=== PATIENT | male | born 1955 | race Caucasian/White ===

== ENCOUNTER → 2018-04-29 | Outpatient (CLI) | payer OTHER ==
[~2018-04-29] MED LIST: ANDROGEL; ASPIR 8181 MG PO; ASPIRIN; ATORVASTATIN CA20 MG PO; AUGMENTIN 875875 MG PO; CELEXA; CIPROFLOXACIN500 M1 PO; CLOPIDOGREL; CRESTOR; DOXYCYCLINE 10100 M1 PO; FLEXERIL PO; HUMALOG KW200 UNIT/1 SUBQ; IMDUR; INSULIN PEN NE1 EAC2; LEVAQUIN 750 M750 MG PO; LEVEMIR SUBQ; METFORMIN; MUCINEX1200 MG PO; NEURONTIN 300300 M1 PO; NEXIUM 24HR20 MG; NITROGLYCERIN0.4 MG SUBLING; NOHOMEMEDICATIONS; NORCO 5-325 TA1 EACH PO; OXYCODONE; OXYCODONE HCL 55 MG PO; OXYCONTIN20 M1 PO; PERCOCET 10-321 EAC1 PO; PLAVIX 75 MG TA75 M1 PO; PREDNISONE 10 M10 MG PO; PROPRANOLOL; PROTONIX40 M1 PO; TIZANIDINE; TOPROL XL25 MG PO; TRICOR; VENTOLIN HFA 1818 GM INH; VICODIN 5-5001 EACH PO; VISTARIL; WELLBUTRIN; XARELTO; XARELTO20 MG PO; ZOFRAN ODT4 MG SUBLING; [UNRECOGNIZED DRUG - OTHER]
== END ==
LOC: M.LAB 04-25 14:00 → M.CT 04-25 15:00 → M.LAB 04-25 15:00 → M.CT 10:01 → M.LAB 10:30
PROVIDERS: General Practice
DX: K76.0 Fatty (change of) liver, not elsewhere classified (principal); J44.9 Chronic obstructive pulmonary disease, unspecified; J98.4 Other disorders of lung; J18.9 Pneumonia, unspecified organism; Z85.118 Personal history of other malignant neoplasm of bronchus and lung

== ENCOUNTER → 2018-07-17 | Outpatient (CLI) | payer OTHER | LOC: M.ULTRA 07-10 13:00 | DX: I65.23 Occlusion and stenosis of bilateral carotid arteries (principal); R09.89 Other specified symptoms and signs involving the circulatory and respiratory systems; I10 Essential (primary) hypertension; E11.21 Type 2 diabetes mellitus with diabetic nephropathy ==

== ENCOUNTER 2019-01-07 08:40 | Inpatient (IN) | payer OTHER ==
[~2019-01-07] VITALS: Ht 180.3 cm; Wt 93.9 kg
[2019-01-07 08:52] VITALS: BP 152/87
[2019-01-07 09:25] LABS: ABSOLUTE BASOPHILS 0.1 thou/uL (0.0-0.2); ABSOLUTE EOSINOPHILS 0.1 thou/uL (0.0-0.7); ABSOLUTE LYMPHOCYTES 2.1 thou/uL (0.8-5.3); ABSOLUTE MONOCYTES 0.5 thou/uL (0.0-1.2); ABSOLUTE NEUTROPHILS 9.6 thou/uL (1.6-8.1); BASOPHILS 0.9 %; EOSINOPHILS 0.7 %; HEMATOCRIT 46.4 % (42.0-52.0); LYMPHOCYTES 16.9 %; MCH 29.3 pg (26.0-34.0); MCHC 34.6 g/dL (28.0-37.0); MCV 84.9 fL (80.0-100.0); NUCLEATED RBCS 0 /100WBC; PLATELET COUNT* 184 thou/uL (150-400); POLYS 77.5 %; RBC 5.47 mil/uL (4.50-6.00); RDW-CV 13.8 % (10.5-14.5); WBC 12.3 thou/uL (4.0-11.0)
[2019-01-07 09:35] LABS: ALBUMIN 3.9 g/dL (3.4-5.0); CALCIUM 9.3 mg/dL (8.5-10.1); CREATININE 1.2 mg/dL (0.6-1.3); TOTAL BILIRUBIN 0.9 mg/dL (<0.1-1.0); TOTAL PROTEIN 7.7 g/dL (6.4-8.2)
[2019-01-07 10:09] LABS: URINE BILIRUBIN NEGATIVE (Negative); URINE BLOOD NEGATIVE (Negative); URINE CLARITY CLEAR; URINE COLOR YELLOW; URINE GLUCOSE-RANDOM 3+ (Negative); URINE KETONES NEGATIVE (Negative); URINE LEUKOCYTES-REFLEX NEGATIVE (Negative); URINE NITRITE-REFLEX NEGATIVE (Negative); URINE PROTEIN NEGATIVE (Negative); URINE UROBILINOGEN 0.2 E.U./dl (0.2-1.0)
[2019-01-07 14:37] VITALS: BP 156/90
[2019-01-07] MEDS ORDERED: XARELTO20 MG PO (16:04)
[2019-01-07 20:15] VITALS: BP 117/65
[2019-01-07 20:25] LABS: AMP/METHAMP Negative (Negative); BARBITURATES Negative (Negative); BENZODIAZEPINES Negative (Negative); COCAINE Negative (Negative); METHADONE Negative (Negative); OPIATES POSITIVE (Negative); PCP Negative (Negative); THC Negative (Negative)
[2019-01-08 03:53] LABS: ABSOLUTE BASOPHILS 0.1 thou/uL (0.0-0.2); ABSOLUTE EOSINOPHILS 0.1 thou/uL (0.0-0.7); ABSOLUTE LYMPHOCYTES 2.3 thou/uL (0.8-5.3); ABSOLUTE MONOCYTES 0.4 thou/uL (0.0-1.2); ABSOLUTE NEUTROPHILS 4.9 thou/uL (1.6-8.1); BASOPHILS 1.1 %; EOSINOPHILS 1.7 %; HEMATOCRIT 45.2 % (42.0-52.0); HEMOGLOBIN 15.4 gm/dL (14.0-18.0); LYMPHOCYTES 29.4 %; MCH 29.2 pg (26.0-34.0); MCHC 34.2 g/dL (28.0-37.0); MCV 85.5 fL (80.0-100.0); MONOCYTES 4.7 %; MPV 7.9 fl. (7.2-11.1); NUCLEATED RBCS 0 /100WBC; PLATELET COUNT* 181 thou/uL (150-400); POLYS 63.1 %; RBC 5.29 mil/uL (4.50-6.00); RDW-CV 13.8 % (10.5-14.5); WBC 7.8 thou/uL (4.0-11.0)
[2019-01-08 04:04] LABS: CALCIUM 8.9 mg/dL (8.5-10.1); MAGNESIUM 1.8 mg/dL (1.8-2.4); POTASSIUM 4.1 mmol/L (3.5-5.1)
[2019-01-08 08:00] VITALS: BP 119/75
[2019-01-08 10:52] VITALS: BP 119/75
[2019-01-09 02:11] LABS: GLYCOHEMOGLOBIN (HGB A1C) 9.2 % (4.8-5.6)
== END 2019-01-08 11:11 | disposition home or self-care (01) | DRG 872 ==
LOC: M.ERS 08:40 → M.TBA-ER 12:02 → M.3W 14:53
PROVIDERS: Emergency Medicine; ADMIT Family Medicine
DX: A41.89 Other specified sepsis (principal); A08.4 Viral intestinal infection, unspecified; E11.40 Type 2 diabetes mellitus with diabetic neuropathy, unspecified; I10 Essential (primary) hypertension; J44.9 Chronic obstructive pulmonary disease, unspecified; F17.210 Nicotine dependence, cigarettes, uncomplicated; I48.2 Chronic atrial fibrillation; D72.829 Elevated white blood cell count, unspecified; I25.10 Atherosclerotic heart disease of native coronary artery without angina pectoris; Z95.5 Presence of coronary angioplasty implant and graft; Z85.118 Personal history of other malignant neoplasm of bronchus and lung; Z79.84 Long term (current) use of oral hypoglycemic drugs; Z79.4 Long term (current) use of insulin; Z90.49 Acquired absence of other specified parts of digestive tract; E11.65 Type 2 diabetes mellitus with hyperglycemia

== ENCOUNTER 2019-04-14 11:23 | Emergency (ER) | payer OTHER ==
[~2019-04-14] VITALS: Ht 180.3 cm; Wt 89.4 kg
[2019-04-14] MEDS ORDERED: MEDROLDOSEPACK PO (12:51)
[2019-04-14 13:12] VITALS: BP 115/61
== END 2019-04-14 13:14 | disposition home or self-care (01) ==
LOC: M.ERS 11:23
DX: M54.41 Lumbago with sciatica, right side (principal); I10 Essential (primary) hypertension; E11.40 Type 2 diabetes mellitus with diabetic neuropathy, unspecified; Z90.49 Acquired absence of other specified parts of digestive tract; Z87.891 Personal history of nicotine dependence; Z79.4 Long term (current) use of insulin; Z95.5 Presence of coronary angioplasty implant and graft

== ENCOUNTER 2020-02-16 11:55 | Inpatient (IN) | payer MEDICARE, OTHER ==
[~2020-02-16] VITALS: Ht 180.3 cm; Wt 91.4 kg
[~2020-02-16 11:55] MED LIST changes: +MEDROLDOSEPACK PO
[2020-02-16 12:04] VITALS: BP 161/83
[2020-02-16 12:37] LABS: ABSOLUTE EOSINOPHILS 0.3 thou/uL (0.0-0.7); ABSOLUTE LYMPHOCYTES 1.5 thou/uL (0.8-5.3); ABSOLUTE MONOCYTES 0.3 thou/uL (0.0-1.2); ABSOLUTE NEUTROPHILS 3.2 thou/uL (1.6-8.1); BASOPHILS 0.8 %; EOSINOPHILS 5.6 %; HEMATOCRIT 40.2 % (42.0-52.0); LYMPHOCYTES 27.8 %; MCH 29.3 pg (26.0-34.0); MCHC 34.9 g/dL (28.0-37.0); MONOCYTES 5.8 %; MPV 7.6 fl. (7.2-11.1); NUCLEATED RBCS 0 /100WBC; PLATELET COUNT* 169 thou/uL (150-400); RBC 4.79 mil/uL (4.50-6.00); RDW-CV 13.5 % (10.5-14.5); WBC 5.4 thou/uL (4.0-11.0)
[2020-02-16 12:45] LABS: CALCIUM 8.4 mg/dL (8.5-10.1); POTASSIUM 5.2 mmol/L (3.5-5.1)
[2020-02-16 12:49] LABS: ALBUMIN 3.4 g/dL (3.4-5.0); TOTAL BILIRUBIN 0.4 mg/dL (<0.1-1.0); TOTAL PROTEIN 6.9 g/dL (6.4-8.2)
[2020-02-16 14:31] LABS: URINE BILIRUBIN NEGATIVE (Negative); URINE BLOOD NEGATIVE (Negative); URINE CLARITY CLEAR; URINE COLOR YELLOW; URINE GLUCOSE-RANDOM 3+ (Negative); URINE KETONES NEGATIVE (Negative); URINE LEUKOCYTES-REFLEX NEGATIVE (Negative); URINE NITRITE-REFLEX NEGATIVE (Negative); URINE PROTEIN NEGATIVE (Negative); URINE UROBILINOGEN 0.2 E.U./dl (0.2-1.0)
[2020-02-16 15:30] VITALS: BP 133/77; BP 152/80
--- NOTE | 2020-02-16 18:58 | NUR ---
PATIENT ARRIVED TO FLOOR FROM ER AT 1525 VIA [facility] ADMITTED FOR LLE CELLULITIS THAT WAS NOT RESPONDING TO ORAL ANTIBIOTICS AT HOME. REPORT RECD FROM MIMI. PATIENT ORIENTED TO ROOM, BOX LUNCH PROVIDED. PATIENT C/O PAIN IN LLE RATING IT AT AN 8. MESSAGE TO DR. WELLS FOR PAIN MED ORDER. HYDROCODONE PO AND MOS4 IVP REC'D. TOOK PATIENT 1 TAB OF HYDROCODONE AND HE BECAME QUITE UPSET WHEN HE ASKED WHAT THE DOSE WAS AND HE WANTED HIS OXYCODONE (PULLING AN EMPTY BOTTLE OF OXYCODONE OUT OF HIS SHORTS POCKET). HOME MEDS TO BE RECONCILED BY DR. SINGH 4MG IVP GIVEN AND PATIENT RESTING QUIETLY.
[2020-02-16 20:00] VITALS: BP 132/66
[2020-02-16 23:55] VITALS: BP 132/76
[2020-02-17 04:50] VITALS: BP 143/76
[2020-02-17 04:57] LABS: ABSOLUTE BASOPHILS 0.1 thou/uL (0.0-0.2); ABSOLUTE EOSINOPHILS 0.3 thou/uL (0.0-0.7); ABSOLUTE LYMPHOCYTES 1.8 thou/uL (0.8-5.3); ABSOLUTE MONOCYTES 0.3 thou/uL (0.0-1.2); ABSOLUTE NEUTROPHILS 3.1 thou/uL (1.6-8.1); BASOPHILS 1.2 %; HEMATOCRIT 43.6 % (42.0-52.0); HEMOGLOBIN 15.4 gm/dL (14.0-18.0); LYMPHOCYTES 32.1 %; MCH 29.4 pg (26.0-34.0); MCHC 35.2 g/dL (28.0-37.0); MCV 83.7 fL (80.0-100.0); MONOCYTES 5.7 %; MPV 7.6 fl. (7.2-11.1); NUCLEATED RBCS 0 /100WBC; PLATELET COUNT* 203 thou/uL (150-400); RBC 5.21 mil/uL (4.50-6.00); RDW-CV 13.5 % (10.5-14.5); WBC 5.6 thou/uL (4.0-11.0)
[2020-02-17 05:31] LABS: ALBUMIN 3.3 g/dL (3.4-5.0); CALCIUM 8.4 mg/dL (8.5-10.1); CREATININE 1.1 mg/dL (0.6-1.3); POTASSIUM 4.5 mmol/L (3.5-5.1); TOTAL BILIRUBIN 0.6 mg/dL (<0.1-1.0); TOTAL PROTEIN 6.9 g/dL (6.4-8.2)
--- NOTE | 2020-02-17 07:25 | NUR ---
CHANGE OF SHIFT, BEDSIDE REPORT GIVEN PATIENT SEEN AT BEDSIDE, IN BED RESTING ASSUMED PATIENT CARE
--- NOTE | 2020-02-17 07:47 | NUR ---
Shift uneventful. Pt is aox4, M/S status, breathe sounds are coarse on auscultation, but respirations are unlabored on room air. Pt is medically stable at this time.
[2020-02-17 08:00] VITALS: BP 130/80
[2020-02-17 16:00] VITALS: BP 126/75
--- NOTE | 2020-02-17 16:14 | NUR ---
Pt is A&O. Resides at home with his . Normally active and independent. No DME. No hx of HH or SNF. Goal is home at dc, no needs anticipated. Following
[2020-02-17 20:00] VITALS: BP 129/77
[2020-02-18 04:46] LABS: ABSOLUTE BASOPHILS 0.1 thou/uL (0.0-0.2); ABSOLUTE EOSINOPHILS 0.3 thou/uL (0.0-0.7); ABSOLUTE LYMPHOCYTES 1.9 thou/uL (0.8-5.3); ABSOLUTE MONOCYTES 0.3 thou/uL (0.0-1.2); ABSOLUTE NEUTROPHILS 2.9 thou/uL (1.6-8.1); BASOPHILS 1.1 %; HEMATOCRIT 43.7 % (42.0-52.0); HEMOGLOBIN 15.1 gm/dL (14.0-18.0); LYMPHOCYTES 34.3 %; MCH 29.1 pg (26.0-34.0); MCHC 34.5 g/dL (28.0-37.0); MCV 84.2 fL (80.0-100.0); MONOCYTES 5.5 %; MPV 7.6 fl. (7.2-11.1); NUCLEATED RBCS 0 /100WBC; PLATELET COUNT* 188 thou/uL (150-400); POLYS 53.1 %; RBC 5.19 mil/uL (4.50-6.00); RDW-CV 13.8 % (10.5-14.5); WBC 5.5 thou/uL (4.0-11.0)
[2020-02-18 05:21] LABS: ALBUMIN 3.2 g/dL (3.4-5.0); CALCIUM 8.5 mg/dL (8.5-10.1); POTASSIUM 4.7 mmol/L (3.5-5.1); TOTAL BILIRUBIN 0.6 mg/dL (<0.1-1.0); TOTAL PROTEIN 6.7 g/dL (6.4-8.2)
--- NOTE | 2020-02-18 06:42 | NUR ---
Shift uneventful. Pt is aox4, M/S status, respirations are coarse on auscultation, but unlabored. Pt is medically stable at this time.
[2020-02-18 08:33] VITALS: BP 136/81
[2020-02-18 16:00] VITALS: BP 125/65
--- NOTE | 2020-02-18 17:22 | NUR ---
ASSUMED CARE OF THE PT @ 0700. PT A/O X4. C/O PAIN IN BLE. PO PAIN MEDS GIVEN AND IV PAIN MEDS GIVEN FOR BREAKTHROUGH PAIN. LT LEG RED AND SWOLLEN. RT ANKLE ARE REDNESS NOTED. VASCULAR SURGERY CONSULTED. SURGEON INTO SEE THE PT TODAY. NO NEW ORDERS AT THIS TIME. PT IS UP AD ANNITA. APPETITE IS GOOD. BS IN THE 200S. SLIDING SCALE INSULIN GIVEN. RT AC IV PATENT. PT CONTINUES ON IV ABTS. PT RESTING IN BED QUIETLY AT THIS TIME WITH THE CALL LIGHT IN REACH. WILL CONTINUE TO MONITOR
[2020-02-18 20:00] VITALS: BP 151/109
[2020-02-18 22:00] VITALS: BP 140/76
[2020-02-19 04:52] LABS: ABSOLUTE BASOPHILS 0.1 thou/uL (0.0-0.2); ABSOLUTE EOSINOPHILS 0.3 thou/uL (0.0-0.7); ABSOLUTE LYMPHOCYTES 2.4 thou/uL (0.8-5.3); ABSOLUTE MONOCYTES 0.4 thou/uL (0.0-1.2); ABSOLUTE NEUTROPHILS 3.6 thou/uL (1.6-8.1); BASOPHILS 0.9 %; EOSINOPHILS 4.8 %; HEMATOCRIT 40.8 % (42.0-52.0); HEMOGLOBIN 14.3 gm/dL (14.0-18.0); LYMPHOCYTES 35.5 %; MCH 29.2 pg (26.0-34.0); MCV 83.5 fL (80.0-100.0); MONOCYTES 5.5 %; MPV 7.8 fl. (7.2-11.1); NUCLEATED RBCS 0 /100WBC; PLATELET COUNT* 187 thou/uL (150-400); POLYS 53.3 %; RBC 4.88 mil/uL (4.50-6.00); RDW-CV 13.4 % (10.5-14.5); WBC 6.8 thou/uL (4.0-11.0)
[2020-02-19 05:07] LABS: ALBUMIN 3.2 g/dL (3.4-5.0); CALCIUM 8.4 mg/dL (8.5-10.1); POTASSIUM 4.6 mmol/L (3.5-5.1); TOTAL BILIRUBIN 0.5 mg/dL (<0.1-1.0); TOTAL PROTEIN 6.6 g/dL (6.4-8.2)
[2020-02-19 08:00] VITALS: BP 115/71
--- NOTE | 2020-02-19 08:05 | NUR ---
Shift uneventful. Pt is aox4, M/S status, respirations are even and unlabored on room air.
[2020-02-19] MEDS ORDERED: BACTRIM DS TAB1 EAC1 PO (10:59)
[2020-02-19 11:19] VITALS: BP 115/71
[2020-02-19 11:31] VITALS: BP 115/71
== END 2020-02-19 12:00 | disposition home or self-care (01) | DRG 603 ==
LOC: M.ERS 11:55 → M.2W 13:01 → M.TBA-ER 13:01 → M.2W 15:35
PROVIDERS: Emergency Medicine Emergency Medical Services; ADMIT Internal Medicine
DX: L03.116 Cellulitis of left lower limb (principal); I48.91 Unspecified atrial fibrillation; E11.40 Type 2 diabetes mellitus with diabetic neuropathy, unspecified; I10 Essential (primary) hypertension; F17.210 Nicotine dependence, cigarettes, uncomplicated; G89.29 Other chronic pain; M54.9 Dorsalgia, unspecified; E11.51 Type 2 diabetes mellitus with diabetic peripheral angiopathy without gangrene; Z90.49 Acquired absence of other specified parts of digestive tract; Z95.5 Presence of coronary angioplasty implant and graft; Z79.4 Long term (current) use of insulin; Z79.01 Long term (current) use of anticoagulants; Z79.899 Other long term (current) drug therapy

== ENCOUNTER 2020-02-21 21:17 | Inpatient (IN) | payer MEDICARE, OTHER ==
[~2020-02-21] VITALS: Ht 180.3 cm; Wt 84.4 kg
[~2020-02-21 21:17] MED LIST changes: +BACTRIM DS TAB1 EAC1 PO
[2020-02-21 21:25] VITALS: BP 137/82
[2020-02-21 21:55] LABS: ABSOLUTE BASOPHILS 0.1 thou/uL (0.0-0.2); ABSOLUTE EOSINOPHILS 0.9 thou/uL (0.0-0.7); ABSOLUTE LYMPHOCYTES 1.6 thou/uL (0.8-5.3); ABSOLUTE MONOCYTES 0.4 thou/uL (0.0-1.2); ABSOLUTE NEUTROPHILS 6.7 thou/uL (1.6-8.1); BASOPHILS 0.9 %; EOSINOPHILS 9.6 %; HEMATOCRIT 42.4 % (42.0-52.0); HEMOGLOBIN 15.1 gm/dL (14.0-18.0); LYMPHOCYTES 16.8 %; MCH 29.4 pg (26.0-34.0); MCHC 35.5 g/dL (28.0-37.0); MCV 82.7 fL (80.0-100.0); MONOCYTES 4.5 %; MPV 7.7 fl. (7.2-11.1); NUCLEATED RBCS 0 /100WBC; PLATELET COUNT* 212 thou/uL (150-400); POLYS 68.2 %; RBC 5.13 mil/uL (4.50-6.00); RDW-CV 13.7 % (10.5-14.5); WBC 9.8 thou/uL (4.0-11.0)
[2020-02-21 22:00] LABS: CALCIUM 8.4 mg/dL (8.5-10.1); CREATININE 1.4 mg/dL (0.6-1.3); POTASSIUM 3.7 mmol/L (3.5-5.1)
[2020-02-21 22:01] LABS: INR 1.1
[2020-02-21 22:10] LABS: ALBUMIN 3.7 g/dL (3.4-5.0); MAGNESIUM 1.5 mg/dL (1.8-2.4); TOTAL BILIRUBIN 0.5 mg/dL (<0.1-1.0); TOTAL PROTEIN 7.5 g/dL (6.4-8.2)
[2020-02-22 01:30] VITALS: BP 137/82
[2020-02-22 02:30] VITALS: BP 121/70
[2020-02-22 08:14] VITALS: BP 136/75
--- NOTE | 2020-02-22 10:38 | EKG ---
[place] [address] ELECTROCARDIOGRAM REPORT Name: NATHANIEL BLANCHARD Room: [address] ADM IN M.R.#: [id number] Admission: 02/21/20 Attend Phys: Christina Cordero, Discharge: Date of : 55 Date of Service: 02/21/202128 Report #: [id number] THIS REPORT FOR: //name// [facility] ED Test Date: 2020-02-21 Test Time: 21:29:17 Pat Name: NATHANIEL BLANCHARD Department: Room: [facility] Gender: M Crumb Packer: ELINOR : 1955 Requested By: Gabriel Woodward Order Number: [id number] MD: Jonel June Measurements Intervals [place] Rate: 103 P: 68 [place]: 153 QRS: 0 QRSD: 96 T: 51 QT: 348 QTc: 456 Interpretive Statements Sinus tachycardia previous inferior infarction Low voltage, precordial leads Compared to ECG 04/21/2016 18:25:01 Low QRS voltage now present Sinus rhythm no longer present Electronically Signed On 02-22-2020 10:36:37 CDT by Jonel June [email or web address] <ELECTRONICALLY SIGNED> By: Jonel June MD, [facility] 02/22/20 1036 28 28 Jonel Juen MD, [facility] /EPI
[2020-02-22 17:09] VITALS: BP 153/80
[2020-02-22 20:19] VITALS: BP 129/72
[2020-02-23 06:21] LABS: CALCIUM 8.2 mg/dL (8.5-10.1); CREATININE 1.1 mg/dL (0.6-1.3); MAGNESIUM 1.7 mg/dL (1.8-2.4); POTASSIUM 4.2 mmol/L (3.5-5.1)
[2020-02-23 08:00] VITALS: BP 128/107
[2020-02-23 12:00] VITALS: BP 171/85
[2020-02-23 16:00] VITALS: BP 165/70
[2020-02-23 20:00] VITALS: BP 156/78
[2020-02-23 21:26] LABS: HEMATOCRIT 38.8 % (42.0-52.0); HEMOGLOBIN 13.6 gm/dL (14.0-18.0); MCH 29.1 pg (26.0-34.0); MCHC 35.1 g/dL (28.0-37.0); MCV 83.1 fL (80.0-100.0); MPV 7.4 fl. (7.2-11.1); RBC 4.67 mil/uL (4.50-6.00); RDW-CV 13.5 % (10.5-14.5); WBC 7.9 thou/uL (4.0-11.0)
[2020-02-24] VITALS: BP 140/62
[2020-02-24 04:00] VITALS: BP 157/82
[2020-02-24 08:06] VITALS: BP 151/77
[2020-02-24] MEDS ORDERED: DOXYCYCLINE MO100 MG PO (10:32)
[2020-02-24 10:47] VITALS: BP 151/77
[2020-02-24 11:24] VITALS: BP 151/77
[2020-02-24 12:00] VITALS: BP 142/88
== END 2020-02-24 12:19 | disposition home health service (06) | DRG 682 ==
LOC: M.ERS 21:17 → M.ORTHSURG 22:26 → M.TBA-ER 22:26 → M.ORTHSURG 02-22 01:50 → M.2W 02-23 20:14
PROVIDERS: Emergency Medicine Emergency Medical Services; ADMIT Internal Medicine
DX: N17.9 Acute kidney failure, unspecified (principal); J96.01 Acute respiratory failure with hypoxia; L03.116 Cellulitis of left lower limb; R91.1 Solitary pulmonary nodule; I25.10 Atherosclerotic heart disease of native coronary artery without angina pectoris; E11.40 Type 2 diabetes mellitus with diabetic neuropathy, unspecified; F17.210 Nicotine dependence, cigarettes, uncomplicated; I48.91 Unspecified atrial fibrillation; I10 Essential (primary) hypertension; E78.5 Hyperlipidemia, unspecified; Z20.828 Contact with and (suspected) exposure to other viral communicable diseases; Z85.118 Personal history of other malignant neoplasm of bronchus and lung; Z95.5 Presence of coronary angioplasty implant and graft; Z79.01 Long term (current) use of anticoagulants; Z79.4 Long term (current) use of insulin; Z79.899 Other long term (current) drug therapy; Z88.1 Allergy status to other antibiotic agents; Z88.2 Allergy status to sulfonamides

== ENCOUNTER → 2020-06-14 | Outpatient (CLI) | payer MEDICARE, OTHER ==
[~2020-06-14] MED LIST changes: +DOXYCYCLINE MO100 MG PO
== END ==
LOC: M.ULTRA 16:24
PROVIDERS: ATTEND Family Medicine
DX: M79.89 Other specified soft tissue disorders (principal)

== ENCOUNTER 2020-07-02 02:32 | Emergency (ER) | payer MEDICARE, OTHER ==
[~2020-07-02] VITALS: Ht 180.3 cm; Wt 84.8 kg
[2020-07-02] MEDS ORDERED: XARELTO20 MG PO (02:43)
[2020-07-02 03:07] LABS: ABSOLUTE BASOPHILS 0.2 thou/uL (0.0-0.2); ABSOLUTE EOSINOPHILS 0.1 thou/uL (0.0-0.7); ABSOLUTE LYMPHOCYTES 1.6 thou/uL (0.8-5.3); ABSOLUTE MONOCYTES 0.3 thou/uL (0.0-1.2); ABSOLUTE NEUTROPHILS 9.9 thou/uL (1.6-8.1); BASOPHILS 1.3 %; EOSINOPHILS 0.8 %; HEMATOCRIT 43.1 % (42.0-52.0); HEMOGLOBIN 15.3 gm/dL (14.0-18.0); MCH 29.4 pg (26.0-34.0); MCHC 35.5 g/dL (28.0-37.0); MCV 82.8 fL (80.0-100.0); MONOCYTES 2.9 %; MPV 8.1 fl. (7.2-11.1); NUCLEATED RBCS 0 /100WBC; PLATELET COUNT* 203 thou/uL (150-400); RBC 5.21 mil/uL (4.50-6.00); RDW-CV 14.4 % (10.5-14.5)
[2020-07-02 03:16] LABS: CALCIUM 8.6 mg/dL (8.5-10.1); CREATININE 0.9 mg/dL (0.6-1.3); POTASSIUM 3.4 mmol/L (3.5-5.1)
[2020-07-02 03:22] LABS: INR 1.2; PROTIME 12.2 Seconds (9.20-11.50)
[2020-07-02 03:29] LABS: ALBUMIN 3.8 g/dL (3.4-5.0); MAGNESIUM 1.9 mg/dL (1.8-2.4); TOTAL BILIRUBIN 0.7 mg/dL (<0.1-1.0); TOTAL PROTEIN 7.3 g/dL (6.4-8.2)
[2020-07-02] MEDS ORDERED: ZOFRAN ODT4 MG PO (06:54)
[2020-07-02 07:17] VITALS: BP 125/75
--- NOTE | 2020-07-02 14:03 | EKG ---
[place] [address] ELECTROCARDIOGRAM REPORT Name: NATHANIEL BLANCHARD Room: [facility]#: [id number] Admission: 07/02/20 Attend Phys: Discharge: 07/02/20 Date of : 55 Date of Service: 07/02/205 Report #: [id number] THIS REPORT FOR: //name// [facility] ED Test Date: 2020-07-02 Test Time: 02:35:55 Pat Name: NATHANIEL BLANCHARD Department: Room: Gender: House Calls Nurse: [place] : 1955 Requested By: Sheila Collier Order Number: [id number] MD: Benjamín Tyler Measurements Intervals [place] Rate: 109 P: 54 [place]: 153 QRS: 2 QRSD: 94 T: 50 QT: 341 QTc: 460 Interpretive Statements Sinus tachycardia No previous ECG available for comparison Electronically Signed On 07-02-2020 14:03:48 CDT by Benjamín Tyler [email or web address] <ELECTRONICALLY SIGNED> By: Benjamín Tyler MD, [facility] 07/02/20 1403 0235 0235 Benjamín Tyler MD, [facility] /EPI
== END 2020-07-02 07:18 | disposition home or self-care (01) ==
LOC: M.ERS 02:32
PROVIDERS: Emergency Medicine
DX: R19.7 Diarrhea, unspecified (principal); R11.2 Nausea with vomiting, unspecified; R10.13 Epigastric pain; R10.33 Periumbilical pain; E11.9 Type 2 diabetes mellitus without complications; F17.210 Nicotine dependence, cigarettes, uncomplicated; Z95.5 Presence of coronary angioplasty implant and graft

== ENCOUNTER 2020-11-09 16:23 | Emergency (ER) | payer MEDICARE, OTHER ==
[~2020-11-09] VITALS: Ht 180.3 cm; Wt 79.8 kg
[~2020-11-09 16:23] MED LIST changes: +ZOFRAN ODT4 MG PO
[2020-11-09 16:58] LABS: ABSOLUTE BASOPHILS 0.1 thou/uL (0.0-0.2); ABSOLUTE EOSINOPHILS 0.2 thou/uL (0.0-0.7); ABSOLUTE LYMPHOCYTES 2.2 thou/uL (0.8-5.3); ABSOLUTE MONOCYTES 0.4 thou/uL (0.0-1.2); ABSOLUTE NEUTROPHILS 3.9 thou/uL (1.6-8.1); BASOPHILS 0.8 %; EOSINOPHILS 3.1 %; HEMATOCRIT 39.7 % (42.0-52.0); HEMOGLOBIN 13.8 gm/dL (14.0-18.0); LYMPHOCYTES 32.8 %; MCH 29.5 pg (26.0-34.0); MCHC 34.7 g/dL (28.0-37.0); MCV 85.1 fL (80.0-100.0); MONOCYTES 5.4 %; NUCLEATED RBCS 0 /100WBC; PLATELET COUNT* 159 thou/uL (150-400); POLYS 57.9 %; RBC 4.66 mil/uL (4.50-6.00); WBC 6.8 thou/uL (4.0-11.0)
[2020-11-09 17:07] LABS: CALCIUM 8.5 mg/dL (8.5-10.1)
[2020-11-09 17:10] LABS: APTT 29.1 Seconds (25.0-31.3); INR 1.1; PROTIME 11.7 Seconds (9.20-11.50)
[2020-11-09 17:22] LABS: ALBUMIN 3.4 g/dL (3.4-5.0); CK-MB MASS 1.2 ng/mL (<0.5-3.6); MAGNESIUM 1.7 mg/dL (1.8-2.4); TOTAL BILIRUBIN 0.6 mg/dL (<0.1-1.0); TOTAL PROTEIN 6.8 g/dL (6.4-8.2)
[2020-11-09 18:57] VITALS: BP 129/89
--- NOTE | 2020-11-10 09:53 | EKG ---
[place] [address] ELECTROCARDIOGRAM REPORT Name: NATHANIEL BLANCHARD Room: [facility]#: [id number] Admission: 11/09/20 Attend Phys: Discharge: 11/09/20 Date of : 55 Date of Service: 11/09/20 1644 Report #: [id number] THIS REPORT FOR: //name// [facility] ED Test Date: 2020-11-09 Test Time: 16:44:17 Pat Name: NATHANIEL BLANCHARD Department: Room: Gender: Hr Advisor: : 1955 Requested By: Arnaldo Randolph Order Number: [id number] MD: Benjamín Tyler Measurements Intervals [place] Rate: 85 P: 63 [place]: 155 QRS: 39 QRSD: 96 T: 53 QT: 369 QTc: 439 Interpretive Statements Sinus rhythm Low voltage, precordial leads Compared to ECG 07/02/2020 02:35:55 Low QRS voltage now present Sinus tachycardia no longer present Electronically Signed On 11-10-2020 9:53:09 [facility] by Benjamín Tyler [email or web address] <ELECTRONICALLY SIGNED> By: Benjamín Tyler MD, [facility] 11/10/20 0953 1644 1644 Benjamín Tyler MD, [facility] /EPI
== END 2020-11-09 18:58 | disposition still patient (30) ==
LOC: M.ERS 16:23
PROVIDERS: Family Medicine
DX: M79.662 Pain in left lower leg (principal); I25.2 Old myocardial infarction; E11.9 Type 2 diabetes mellitus without complications; Z79.899 Other long term (current) drug therapy; Z79.4 Long term (current) use of insulin; Z88.2 Allergy status to sulfonamides; Z87.891 Personal history of nicotine dependence

== ENCOUNTER 2021-01-11 15:34 | Emergency (ER) | payer MEDICARE, OTHER ==
[~2021-01-11] VITALS: Ht 180.3 cm; Wt 84.8 kg
[2021-01-11 15:59] LABS: ABSOLUTE EOSINOPHILS 0.2 thou/uL (0.0-0.7); ABSOLUTE LYMPHOCYTES 1.9 thou/uL (0.8-5.3); ABSOLUTE MONOCYTES 0.4 thou/uL (0.0-1.2); ABSOLUTE NEUTROPHILS 3.7 thou/uL (1.6-8.1); BASOPHILS 0.6 %; EOSINOPHILS 2.5 %; HEMATOCRIT 40.4 % (42.0-52.0); HEMOGLOBIN 13.8 gm/dL (14.0-18.0); LYMPHOCYTES 30.7 %; MCH 28.9 pg (26.0-34.0); MCHC 34.1 g/dL (28.0-37.0); MCV 84.6 fL (80.0-100.0); MONOCYTES 5.9 %; MPV 7.5 fl. (7.2-11.1); NUCLEATED RBCS 0 /100WBC; PLATELET COUNT* 187 thou/uL (150-400); POLYS 60.3 %; RBC 4.77 mil/uL (4.50-6.00); RDW-CV 13.5 % (10.5-14.5); WBC 6.1 thou/uL (4.0-11.0)
[2021-01-11 16:05] LABS: CALCIUM 9.2 mg/dL (8.5-10.1); CREATININE 0.9 mg/dL (0.6-1.3); POTASSIUM 3.8 mmol/L (3.5-5.1)
[2021-01-11 16:10] LABS: ALBUMIN 3.8 g/dL (3.4-5.0); TOTAL BILIRUBIN 0.6 mg/dL (<0.1-1.0); TOTAL PROTEIN 7.3 g/dL (6.4-8.2)
[2021-01-11] MEDS ORDERED: CIPRO500 M1 PO (17:07)
[2021-01-11] MEDS ORDERED: FLAGYL500 M1 PO (17:07)
[2021-01-11 17:44] VITALS: BP 116/77
== END 2021-01-11 17:46 | disposition home or self-care (01) ==
LOC: M.ERS 15:34
PROVIDERS: Emergency Medicine
DX: R10.32 Left lower quadrant pain (principal); F17.210 Nicotine dependence, cigarettes, uncomplicated; Z88.1 Allergy status to other antibiotic agents; Z88.2 Allergy status to sulfonamides; Z95.5 Presence of coronary angioplasty implant and graft

== ENCOUNTER 2021-01-28 04:10 | Emergency (ER) | payer MEDICARE, OTHER ==
[~2021-01-28] VITALS: Ht 180.3 cm; Wt 75.8 kg
[~2021-01-28 04:10] MED LIST changes: +CIPRO500 M1 PO; +FLAGYL500 M1 PO
[2021-01-28 04:37] LABS: ABSOLUTE BASOPHILS 0.1 thou/uL (0.0-0.2); ABSOLUTE EOSINOPHILS 0.2 thou/uL (0.0-0.7); ABSOLUTE LYMPHOCYTES 2.7 thou/uL (0.8-5.3); ABSOLUTE MONOCYTES 0.5 thou/uL (0.0-1.2); EOSINOPHILS 2.1 %; HEMATOCRIT 41.5 % (42.0-52.0); LYMPHOCYTES 32.2 %; MCH 28.7 pg (26.0-34.0); MCHC 33.8 g/dL (28.0-37.0); MONOCYTES 5.9 %; MPV 7.6 fl. (7.2-11.1); NUCLEATED RBCS 0 /100WBC; PLATELET COUNT* 190 thou/uL (150-400); POLYS 58.8 %; RBC 4.88 mil/uL (4.50-6.00); RDW-CV 13.8 % (10.5-14.5); WBC 8.5 thou/uL (4.0-11.0)
[2021-01-28 04:45] LABS: ALBUMIN 3.8 g/dL (3.4-5.0); CALCIUM 9.1 mg/dL (8.5-10.1); CREATININE 0.9 mg/dL (0.6-1.3); POTASSIUM 4.4 mmol/L (3.5-5.1); TOTAL BILIRUBIN 0.6 mg/dL (<0.1-1.0); TOTAL PROTEIN 7.5 g/dL (6.4-8.2)
[2021-01-28 04:49] LABS: APTT 34.2 Seconds (25.0-31.3); INR 1.2; PROTIME 13.1 Seconds (9.20-11.50)
[2021-01-28 05:10] LABS: URINE BILIRUBIN NEGATIVE (Negative); URINE BLOOD NEGATIVE (Negative); URINE CLARITY CLEAR; URINE COLOR YELLOW; URINE GLUCOSE-RANDOM NEGATIVE (Negative); URINE KETONES NEGATIVE (Negative); URINE LEUKOCYTES-REFLEX NEGATIVE (Negative); URINE NITRITE-REFLEX NEGATIVE (Negative); URINE PROTEIN NEGATIVE (Negative); URINE SPECIFIC GRAVITY 1.015 (1.005-1.030); URINE UROBILINOGEN 0.2 E.U./dl (0.2-1.0)
[2021-01-28] MEDS ORDERED: CIPROFLOXACIN500 M1 PO (06:42)
[2021-01-28] MEDS ORDERED: FLAGYL500 M1 PO (06:42)
[2021-01-28 07:00] VITALS: BP 113/77
--- NOTE | 2021-01-28 10:18 | EKG ---
[place] [address] ELECTROCARDIOGRAM REPORT Name: NATHANIEL BLANCHARD Room: [facility]#: [id number] Admission: 01/28/21 Attend Phys: Discharge: 01/28/21 Date of : 55 Date of Service: 01/28/21 0434 Report #: [id number] THIS REPORT FOR: //name// [facility] ED Test Date: 2021-01-28 Test Time: 04:34:59 Pat Name: NATHANIEL BLANCHARD Department: Room: Gender: Neurosurgical Nurse: : 1955 Requested By: Odalys Munroe Order Number: [id number] MD: Jonel June Measurements Intervals [place] Rate: 89 P: 64 [place]: 151 QRS: 10 QRSD: 103 T: 35 QT: 369 QTc: 449 Interpretive Statements Sinus rhythm Low voltage, extremity and precordial leads Baseline [place] in lead(s) V1,V2 Compared to ECG 11/09/2020 16:44:17 No significant changes Electronically Signed On 01-28-2021 10:18:20 CDT by Jonel June [email or web address] <ELECTRONICALLY SIGNED> By: Jonel June MD, [facility] 01/28/21 1018 0434 0434 Jonel June MD, [facility] /EPI
== END 2021-01-28 07:00 | disposition home or self-care (01) ==
LOC: M.ERS 04:10
PROVIDERS: Personal Emergency Response Attendant
DX: K52.9 Noninfective gastroenteritis and colitis, unspecified (principal); Z20.822 Contact with and (suspected) exposure to COVID-19; E11.9 Type 2 diabetes mellitus without complications; F17.210 Nicotine dependence, cigarettes, uncomplicated; Z88.2 Allergy status to sulfonamides; Z88.1 Allergy status to other antibiotic agents; Z95.5 Presence of coronary angioplasty implant and graft; Z79.4 Long term (current) use of insulin

== ENCOUNTER 2021-05-03 13:05 | Emergency (ER) | payer MEDICARE, OTHER ==
[~2021-05-03] VITALS: Ht 180.3 cm; Wt 75.3 kg
[2021-05-03 13:52] LABS: ABSOLUTE BASOPHILS 0.1 thou/uL (0.0-0.2); ABSOLUTE EOSINOPHILS 0.1 thou/uL (0.0-0.7); ABSOLUTE LYMPHOCYTES 2.4 thou/uL (0.8-5.3); ABSOLUTE MONOCYTES 0.6 thou/uL (0.0-1.2); ABSOLUTE NEUTROPHILS 8.6 thou/uL (1.6-8.1); BASOPHILS 0.4 %; EOSINOPHILS 0.8 %; HEMATOCRIT 39.7 % (42.0-52.0); HEMOGLOBIN 14.2 gm/dL (14.0-18.0); LYMPHOCYTES 20.2 %; MCH 29.7 pg (26.0-34.0); MCHC 35.8 g/dL (28.0-37.0); MCV 82.9 fL (80.0-100.0); MONOCYTES 4.9 %; MPV 7.9 fl. (7.2-11.1); NUCLEATED RBCS 0 /100WBC; PLATELET COUNT* 168 thou/uL (150-400); POLYS 73.7 %; RBC 4.78 mil/uL (4.50-6.00); RDW-CV 13.7 % (10.5-14.5); WBC 11.7 thou/uL (4.0-11.0)
[2021-05-03 14:02] LABS: CALCIUM 9.3 mg/dL (8.5-10.1); CREATININE 0.9 mg/dL (0.6-1.3); POTASSIUM 3.5 mmol/L (3.5-5.1)
[2021-05-03 14:05] LABS: URINE BILIRUBIN NEGATIVE (Negative); URINE BLOOD NEGATIVE (Negative); URINE CLARITY CLEAR; URINE COLOR DARK YELLOW; URINE GLUCOSE-RANDOM 3+ (Negative); URINE KETONES TRACE (Negative); URINE LEUKOCYTES-REFLEX NEGATIVE (Negative); URINE NITRITE-REFLEX NEGATIVE (Negative); URINE PROTEIN TRACE (Negative); URINE SPECIFIC GRAVITY 1.025 (1.005-1.030)
[2021-05-03 14:07] LABS: ALBUMIN 3.7 g/dL (3.4-5.0); TOTAL BILIRUBIN 1.8 mg/dL (<0.1-1.0); TOTAL PROTEIN 7.3 g/dL (6.4-8.2)
[2021-05-03] MEDS ORDERED: DOXYCYCLINE 10100 MG PO (15:11)
[2021-05-03 15:26] VITALS: BP 114/63
--- NOTE | 2021-05-03 15:51 | EKG ---
[place] [address] ELECTROCARDIOGRAM REPORT Name: NATHANIEL BLANCHARD Room: [facility]#: [id number] Admission: 05/03/21 Attend Phys: Discharge: 05/03/21 Date of : 55 Date of Service: 05/03/21 1326 Report #: [id number] THIS REPORT FOR: //name// [facility] ED Test Date: 2021-05-03 Test Time: 13:26:12 Pat Name: NATHANIEL BLANCHARD Department: Room: Gender: Brick Chimney Builder: : 1955 Requested By: Andreea Bazan Order Number: [id number] MD: Benjamín Tyler Measurements Intervals [place] Rate: 90 P: 64 [place]: 161 QRS: 31 QRSD: 97 T: 33 QT: 379 QTc: 464 Interpretive Statements Sinus rhythm Compared to ECG 01/28/2021 04:34:59 No significant changes Electronically Signed On 05-03-2021 15:51:07 CDT by Benjamín Tyler [email or web address] <ELECTRONICALLY SIGNED> By: Benjamín Tyler MD, [facility] 05/03/21 1551 1326 1326 Benjamín Tyler MD, [facility] /EPI
== END 2021-05-03 15:27 | disposition home or self-care (01) ==
LOC: M.ERS 13:05
PROVIDERS: Nurse Practitioner Family
DX: T67.5XXA Heat exhaustion, unspecified, initial encounter (principal); J18.9 Pneumonia, unspecified organism; Z20.822 Contact with and (suspected) exposure to COVID-19; R55 Syncope and collapse; F17.210 Nicotine dependence, cigarettes, uncomplicated; Z79.4 Long term (current) use of insulin; Z79.899 Other long term (current) drug therapy; X58.XXXA Exposure to other specified factors, initial encounter; Y93.89 Activity, other specified; Y92.89 Other specified places as the place of occurrence of the external cause; Y99.8 Other external cause status

== ENCOUNTER 2021-07-08 11:18 | Inpatient (IN) | payer MEDICARE, OTHER ==
[~2021-07-08] VITALS: Ht 180.3 cm; Wt 78.5 kg
[~2021-07-08 11:18] MED LIST changes: +DOXYCYCLINE 10100 MG PO
[2021-07-08 11:40] VITALS: BP 120/91
[2021-07-08 13:20] LABS: ABSOLUTE BASOPHILS 0.1 thou/uL (0.0-0.2); ABSOLUTE EOSINOPHILS 0.1 thou/uL (0.0-0.7); ABSOLUTE LYMPHOCYTES 1.6 thou/uL (0.8-5.3); ABSOLUTE MONOCYTES 0.7 thou/uL (0.0-1.2); ABSOLUTE NEUTROPHILS 6.8 thou/uL (1.6-8.1); BASOPHILS 0.6 %; EOSINOPHILS 1.3 %; HEMATOCRIT 37.8 % (42.0-52.0); HEMOGLOBIN 12.9 gm/dL (14.0-18.0); LYMPHOCYTES 17.2 %; MCH 28.2 pg (26.0-34.0); MCHC 34.1 g/dL (28.0-37.0); MCV 82.6 fL (80.0-100.0); MONOCYTES 7.4 %; MPV 7.4 fl. (7.2-11.1); NUCLEATED RBCS 0 /100WBC; PLATELET COUNT* 256 thou/uL (150-400); POLYS 73.5 %; RBC 4.58 mil/uL (4.50-6.00); RDW-CV 13.4 % (10.5-14.5); WBC 9.3 thou/uL (4.0-11.0)
[2021-07-08 13:32] LABS: CREATININE 0.9 mg/dL (0.6-1.3)
[2021-07-08 13:37] LABS: ALBUMIN 3.2 g/dL (3.4-5.0); TOTAL BILIRUBIN 0.9 mg/dL (<0.1-1.0); TOTAL PROTEIN 7.5 g/dL (6.4-8.2)
--- NOTE | 2021-07-08 14:34 | NUR ---
FRAUD EXAMINER REVIEW on 07-08-21 and agree that Note can be placed in the MEDICAL RECORD - Jhon Stern RN 07-08-21 This 66 year old male patient of PCP Dr. Guajardo presents to the ED at [facility] on 07-08-21 with an ulcer to the bottom of his right foot. Notably the patient has a history of DM and states he has been treating this for the past 3-weeks and has been on an ant at home. Today the patient presents with redness and warmth to area. Per ED MD patient found to have a 6 cm diabetic ulcer of the right foot with surrounding erythema and was give 1 gram of Vancomycin IV and 1 gram of Rocephin IV, and 2 tabs of Naro PO while in the ED. The patient ahs been admitted with: Diabetic ulcer of the right foot and cellulites of the right foot. Per the patient has a hx of GA with stent placement, DM, HTN and Lung CA s/p lobectomy. Per ED triage assessment the patient is noted as vaccinated and pending COVID ANTIGEN testing Stat in the ED. Last contact with CM on 02-23-20 when the patient was discharged to home with spouse without any needs at discharge. As per ED records the patient is listed as A&O x4. The patients lists spouse of Gisella Conklin as next of kin at [phone]. As plan of care is developed by MD's CM will assist if needed for discharge needs that should arise.
--- NOTE | 2021-07-08 14:39 | EKG ---
[place] [address] ELECTROCARDIOGRAM REPORT Name: NATHANIEL BLANCHARD Room: [place] [address] ADM IN R.#: [id number] Admission: 07/08/21 Attend Phys: Tico Fang Discharge: Date of : 55 Date of Service: 07/08/21 1328 Report #: [id number] THIS REPORT FOR: //name// [facility] ED Test Date: 2021-07-08 Test Time: 13:28:35 Pat Name: NATHANIEL BLANCHARD Department: Room: [facility] Gender: M Carpet Layer: DERRICK : 1955 Requested By: Arnaldo Randolph Order Number: [id number] MD: Benjamín Tyler Measurements Intervals [place] Rate: 78 P: 66 [place]: 157 QRS: 21 QRSD: 101 T: 36 QT: 396 QTc: 452 Interpretive Statements Sinus rhythm Compared to ECG 05/03/2021 13:26:12 No significant changes Electronically Signed On 07-08-2021 14:39:38 CDT by Benjamín Tyler [email or web address] <ELECTRONICALLY SIGNED> By: Benjamín Tyler MD, [facility] 07/08/21 1439 1328 1328 Benjamín Tyler MD, [facility] /EPI
[2021-07-08 16:55] VITALS: BP 119/69
[2021-07-08 18:11] VITALS: BP 119/69
[2021-07-08 20:45] VITALS: BP 107/69; BP 120/72
--- NOTE | 2021-07-08 20:45 | NUR ---
PT ADMITTED TO FLOOR PER CART ACCOMPANIED BY ER STAFF WITH BELONGINGS. ORIENTED TO ROOM AND CALL LITE. HISTORY OBTAINED AND ASSESSMENT PERFORMED, SEE ADMIT NOTES. R FOOT EDEMA, REDNESS AND OPEN AREAS, PIC TO BE OBTAINED AND PLACED IN CHART. PT DENIES NEED FOR PAIN MED AT PRESENT, REQUESTING SNACK. R FOOT ELEVATED ON PILLOW. LAC SL IV. MEDS TO BE GIVEN PER JAN. AOX4, PLEASANT. DENIES NEEDS AT PRESENT. CALL LITE IN EASY REACH.
[2021-07-09 08:00] VITALS: BP 79/65; BP 97/65
[2021-07-09 16:00] VITALS: BP 107/53
[2021-07-09 19:45] VITALS: BP 115/74
[2021-07-10 01:44] VITALS: BP 112/60
--- NOTE | 2021-07-10 05:34 | NUR ---
PT SLEPT OFF AND ON OVERNIGHT. UP WITH CANE INDEP TO BR TO VOID, PT STATES BM YESTERDAY. LAC SL IV, ABX GIVEN ORDERED. RECEIVING PO PAIN MED FOR R FOOT Q4 HOURS WITH GOOD RESULT. HS ACCUCHECK 379, INSULIN GIVEN ORDERED. NO LABS THIS MORNING. PODIATRY CONSULTED, HAS NOT SEEN PT YET. ABLE TO USE CALL LITE AND MAKE NEEDS KNOWN.
[2021-07-10 07:55] VITALS: BP 116/62
[2021-07-10 16:00] VITALS: BP 114/70
--- NOTE | 2021-07-10 18:39 | NUR ---
FREIGHT ENGINEER INTO SEE PATIENT TODAY. PLAN FOR DEBRIEDMENT TOMORROW. NPO AT MIDNIGHT. RIGHT FOOT DRESSING CLEANED WITH NORMAL SALINE, OINTMENT PER ORDER APPLIED, THEN WRAPPED WITH GAUZE AND COBAN AT PATIENT REQUEST. PATIENT AGREEABLE TO PLAN OF CARE.
[2021-07-10 20:55] VITALS: BP 98/46
[2021-07-11] VITALS (8 sets, daily range): BP systolic 112–142; BP diastolic 52–81
[2021-07-11 05:06] LABS: GLYCOHEMOGLOBIN (HGB A1C) 10.5 % (4.8-5.6)
--- NOTE | 2021-07-11 06:13 | NUR ---
PT SLEPT WELL AFTER MIDNIGHT, HAS BEEN NPO SINCE 0100, TAKING PAIN MED WITH SMALL SIP THIS MORNING. HS ACCUCHECK 179, INSULIN GIVEN. R FOOT DRSG CDI, FOOT ELEVATED ON PILLOW. USING CANE TO AMBULATE TO BR. TO HAVE I&D DONE TODAY BY PODIATRY. ABLE TO USE CALL LITE AND MAKE NEEDS KNOWN. ABX GIVEN ORDERED.
--- NOTE | 2021-07-11 15:30 | NUR ---
Pt is A&O. Resides at home with . Independent. Pt has a cane that he can use for mobility. No hx of HH or SNF. Podiatry, plan surgery today. ID consulted. Wound care and pain control. Goal is home at dc, no needs vs HH anticipated
--- NOTE | 2021-07-11 15:46 | NUR ---
PATIENT CALLED PODIATRY DOCTOR OFFICE TO GET DISCHARGE ORDERS. I SPOKE WITH PATIENT AND EDUCATED ON IMPORTANCE OF STAYING FOR IV ANTIBIOTIC THERAPY. PT AGREEABLE TO STAY TONIGT AND TRY TO GET AT HOME INFUSIONS SET UP.
[2021-07-12] MEDS ORDERED: NEURONTIN600 MG PO (07:24)
[2021-07-12] MEDS ORDERED: ROXICODONE15 MG PO (07:24)
[2021-07-12] MEDS ORDERED: ZOSYN 3.373.375 GM/1 IV (07:24)
[2021-07-12] MEDS ORDERED: COLACE 100 MG100 MG PO (07:24)
[2021-07-12] MEDS ORDERED: Nicoderm 21MG/24HR P TRANSDERM (07:24)
[2021-07-12 08:00] VITALS: BP 160/71
--- NOTE | 2021-07-12 08:35 | NUR ---
WOUND NURSE: RIGHT FOOT DRESSING CHANGE WAS PERFORMED BY PHYSICIAN THIS MORNING. WOUNDS WERE PHOTOGRAPHED BY ME AND GIVEN TO HIS NURSE XOCHITL FOR ENTRY INTO HIS CHART. PATIENT MAY DISCHARGE TODAY AFTER PICC PLACEMENT AND HOME HEALTH ARRANGED.
[2021-07-12 08:42] VITALS: BP 131/71
--- NOTE | 2021-07-12 08:44 | NUR ---
Pt discharging to home today, per Pt will need ivabx. CM spoke with Pt, Pt states that between him and his , they can manage at home. Faxed ivabx referral to [facility], await cost. GREGORIO faxed HH orders to [facility] per Pt's request. Await picc, CM to fax picc report to [facility] once available.
--- NOTE | 2021-07-12 09:30 | OP ---
[address] [address] OPERATIVE REPORT Name: LONATHANIEL Catrachita Room: [address] IN M.R.#: [id number] Admission: 07/08/21 Attend Phys: Hannah Mauro Discharge: Date of : 55 Report #: [id number] THIS REPORT FOR: cc: Bryan Guajardo,Bryan Perez,Ban Ross DPM ~ DATE OF SURGERY: 07/11/2021 SURGEON: Ban Aguilera DPM. CLAY PIGEON SETTER: None. PREOPERATIVE DIAGNOSES: 1. Ulcerations, right foot. 2. Right lower leg cellulitis. 3. Diabetes with neuropathy. POSTOPERATIVE DIAGNOSES: 1. Ulcerations, right foot. 2. Right lower leg cellulitis. 3. Diabetes with neuropathy. PROCEDURE PERFORMED: Debridement, irrigation of ulcerations, right foot. PATHOLOGY: Two samples were sent, one for gross pathology for right foot ulcer and another deep tissue culture, right foot ulceration. ANESTHESIA: General with local. HEMOSTASIS: Compression only. ESTIMATED BLOOD LOSS: 3 mL MATERIALS USED: One quarter inch iodoform packing materials. INJECTIONS: 15 mL of 1:1 mixture of 0.25% Marcaine plain and 1% lidocaine plain. COMPLICATIONS: None. PROCEDURE IN DETAIL: The patient was brought into the operating room and placed on the operating room table in the supine position. The patient was then placed under general anesthesia at this time, a pneumatic ankle tourniquet was then placed about the patient's right lower extremity. Local timeout was then performed with all personnel in the room and in agreement to procedure and procedure site and patient. Once a timeout was then performed, a local infiltrative block was then placed about the patient's right foot utilizing [address] [id number] OPERATIVE REPORT Name: NATHANIEL BLANCHARD Room: [address] IN [facility].#: [id number] Admission: 07/08/21 Attend Phys: Hannah Mauro Discharge: Date of : 55 Report #: [id number] mL of 1:1 mixture of 0.25% Marcaine plain and 1% lidocaine plain throughout the patient's right foot. Next, the right foot was then scrubbed, prepped and draped in the usual aseptic manner. Attention was then directed to the plantar aspect of the patient's right foot where ulceration was noted sub-first metatarsal head, ulceration was noted to be a mixture of granular fibrotic and necrotic tissue that was noted to probe deeply past the dermal layer. A preoperative debridement measures as a 2 x 1.2 x 0.1 cm. At this time, additional ulcerations were also noted to the patient's right foot first noted along the dorsal hallux, which measured 1 x 1 x 0.1 cm and additional one along the medial right hallux at 0.4 x 0.4 x 0.1 cm. Once these were taken and measured, the plantar ulceration, which was noted to have the cellulitis surrounding and the necrotic tissue within was then debrided with a ____ #15 blade. At this time, the necrosis along the tissues within that ulceration were noted to be central and moved deep sub-first metatarsal head. This was removed and a part of the sample was sent for gross pathology to evaluate the necrosis as well as the remaining deep soft tissue was then removed and sent for deep culture at this time. Further debridement deep to the foot was continued at this time, utilizing a ____ #15 blade and rongeur. At this time, the wound was noted to then probe deeply. No abscess or pustular drainage was noted throughout. No malodor, but there was a sinus tract noted to the first interspace of the patient's right foot. I reached dorsally at this time and this area was also curetted and debrided out at this time and there was also undermining noted along the 2 o'clock aspect of the ulceration of the plantar first metatarsal head at this time, which again was also curetted and debrided out. Once this was completed and all tissues were noted to be granular and bleeding at this time, irrigation with pulse lavage was then initiated at this time utilizing approximately 1.5 liters of sterile normal saline at this time. Once this was completed, the ulceration was again reevaluated. There were no signs of further necrotic or fibrotic tissue at this time, and I was able to further evaluate the deep aspect of the wound. The wound at this time after debridement and removal of all necrotic and infected tissue, did note to abut the capsule of the first metatarsophalangeal joint at this time, but I did not note any exposed bone. The quality upon palpation was noted to be hard at the capsule and underlying. Additional flush was done at this time and the ulceration was then packed with 1/4-inch iodoform packing at this time into the interspace and undermined areas. The patient's right foot was then cleansed with sterile normal saline and additional dressings of 4 x 4 gauze, Kerlix and Facundo bandage was then applied at this time sterilely. The patient tolerated the procedure and anesthesia well. The additional ulcerations were also debrided prior to dressing of the wound with a #15 blade down to the level of subcutaneous tissue. These measurements along the medial hallux right ulceration was noted to be 0.4 x 0.5 x 0.1 cm and the dorsal hallux, right ulceration post-debridement with #15 blade down to the level of subcutaneous tissue was measured at 1 x 1 x 0.2 cm. The postoperative debridement [address] [address] OPERATIVE REPORT Name: NATHANIEL BLANCHARD Room: [address] IN ..#: [id number] Admission: 07/08/21 Attend Phys: Hannah Mauro Discharge: Date of : 55 Report #: [id number] measurement of the plantar ulceration at this time was noted to be 2.1 x 1.3 x 0.8 cm. The foot was dressed as previously described. The patient tolerated the procedure and anesthesia well. The patient was transferred from the operating room to the recovery room with vital signs stable and neurovascular status intact. The patient is to have limited weightbearing to heel only and will be wearing the Cam walker boot as well. We will consult with Infectious Diseases due to previous culture as well as depth of the wound, leaving concern for may be some early osteomyelitis. For now I would recommend extended antibiotics at this time. <ELECTRONICALLY SIGNED> By: Ban Aguilera DPM 07/12/21 0930 2109 2146Ban Aguilera, MAMADOU /nt
[2021-07-12 15:32] VITALS: BP 131/71
[2021-07-12 15:35] VITALS: BP 131/71
--- NOTE | 2021-07-12 16:06 | NUR ---
PT DISCHARGED HOME WITH ALL BELONGINGS ACCOMPANIED BY A FRIEND. PT GOT HIS RIGHT UPPER ARM PICC PLACED. SALINE LOCK REMOVED WITH OUT DIFFICULTY HUB INTACT. PT DENIED PAIN ON DISCHARGE.
--- NOTE | 2021-07-13 12:07 | PATH ---
[address] [address] PATHOLOGY RPT PROCEDURE Name: NATHANIEL BLANCHARD Room: [address] IN M.R.#: [id number] Admission: 07/08/21 Date of : 55 Discharge: 07/12/21 Report #: [id number] Path Case #: [id number] LCA Accession Number: [id number] . 01 Material submitted: . foot - RIGHT FOOT ULCER. Modifiers: right . 01 Clinical history: . INCISION AND DRAINAGE R FOOT CELLULITIS, DIABETIC ULCER OF R FOOT . 02 Diagnosis: Right foot ulcer: - Benign fibrovascular stroma with fibrosis, necrosis and acute inflammation. (FRED:noe; 07/13/2021) QMS 07/13/2021 1017 Local . 02 Electronically signed: . Ramone Mcelroy MD, Pathologist NPI- [id number] . 01 Gross description: . The specimen is received in formalin, labeled "Nathaniel Blanchard, right foot ulcer". Received are two segments of hurley-billy tissue measuring 0.3 and 0.6 cm in maximum dimensions. The specimen is submitted entirely in cassette A1. (CAA; 07/12/2021) QA/QA 07/12/2021 1055 Local . 02 Pathologist provided ICD-10: L03.115 . 02 CPT . 792349 Specimen Comment: A courtesy copy of this report has been sent to [phone] Specimen Comment: [phone], Specimen Comment: Report sent to , DR RESTREPO / DR LEO Performed at: [address], [place] [id number] MD Temo Sanz MD Phone: [phone] Performed at: 02 [facility] [address], [place], [place] [id number] MD Ramone Mcelroy MD Phone: [phone]
== END 2021-07-12 15:50 | disposition home health service (06) | DRG 623 ==
LOC: M.ERS 11:18 → M.2W 12:55 → M.TBA-ER 12:55 → M.2W 20:39
PROVIDERS: Family Medicine; ADMIT Internal Medicine; ATTEND Internal Medicine
DX: E11.621 Type 2 diabetes mellitus with foot ulcer (principal); L03.115 Cellulitis of right lower limb; E44.1 Mild protein-calorie malnutrition; Z20.822 Contact with and (suspected) exposure to COVID-19; I87.2 Venous insufficiency (chronic) (peripheral); E11.40 Type 2 diabetes mellitus with diabetic neuropathy, unspecified; G89.29 Other chronic pain; M54.9 Dorsalgia, unspecified; I10 Essential (primary) hypertension; I25.2 Old myocardial infarction; Z95.5 Presence of coronary angioplasty implant and graft; Z85.118 Personal history of other malignant neoplasm of bronchus and lung; Z88.2 Allergy status to sulfonamides; Z88.8 Allergy status to other drugs, medicaments and biological substances; Z68.24 Body mass index [BMI] 24.0-24.9, adult

== ENCOUNTER 2021-07-24 16:51 | Emergency (ER) | payer MEDICARE, OTHER ==
[~2021-07-24] VITALS: Ht 180.3 cm; Wt 79.8 kg
[~2021-07-24 16:51] MED LIST changes: +COLACE 100 MG100 MG PO; +NEURONTIN600 MG PO; +Nicoderm 21MG/24HR P TRANSDERM; +ROXICODONE15 MG PO; +ZOSYN 3.373.375 GM/1 IV
[2021-07-24 21:19] VITALS: BP 149/68
== END 2021-07-24 21:21 | disposition home or self-care (01) ==
LOC: M.ERS 16:51
DX: T82.594A Other mechanical complication of infusion catheter, initial encounter (principal); E11.40 Type 2 diabetes mellitus with diabetic neuropathy, unspecified; F17.210 Nicotine dependence, cigarettes, uncomplicated; Z79.4 Long term (current) use of insulin; Z79.899 Other long term (current) drug therapy; Z88.2 Allergy status to sulfonamides; Y84.8 Other medical procedures as the cause of abnormal reaction of the patient, or of later complication, without mention of misadventure at the time of the procedure; Y92.89 Other specified places as the place of occurrence of the external cause

== ENCOUNTER 2021-08-11 10:00 | Emergency (ER) | payer MEDICARE, OTHER ==
[~2021-08-11] VITALS: Ht 180.3 cm; Wt 78.0 kg
[2021-08-11 11:30] LABS: ABSOLUTE EOSINOPHILS 0.1 thou/uL (0.0-0.7); ABSOLUTE LYMPHOCYTES 1.6 thou/uL (0.8-5.3); ABSOLUTE MONOCYTES 0.3 thou/uL (0.0-1.2); ABSOLUTE NEUTROPHILS 3.9 thou/uL (1.6-8.1); BASOPHILS 0.8 %; EOSINOPHILS 2.2 %; HEMATOCRIT 37.8 % (42.0-52.0); HEMOGLOBIN 12.8 gm/dL (14.0-18.0); LYMPHOCYTES 26.7 %; MCV 82.5 fL (80.0-100.0); MONOCYTES 4.9 %; MPV 7.3 fl. (7.2-11.1); NUCLEATED RBCS 0 /100WBC; PLATELET COUNT* 210 thou/uL (150-400); POLYS 65.4 %; RBC 4.58 mil/uL (4.50-6.00); RDW-CV 14.1 % (10.5-14.5); WBC 5.9 thou/uL (4.0-11.0)
[2021-08-11 11:39] LABS: CALCIUM 9.6 mg/dL (8.5-10.1); CREATININE 1.1 mg/dL (0.6-1.3); POTASSIUM 5.3 mmol/L (3.5-5.1)
[2021-08-11 11:45] LABS: ALBUMIN 3.4 g/dL (3.4-5.0); TOTAL BILIRUBIN 0.4 mg/dL (<0.1-1.0); TOTAL PROTEIN 7.8 g/dL (6.4-8.2)
[2021-08-11 16:23] VITALS: BP 120/85
== END 2021-08-11 16:23 | disposition home or self-care (01) ==
LOC: M.ERS 10:00
PROVIDERS: Physician Assistant
DX: T82.868A Thrombosis due to vascular prosthetic devices, implants and grafts, initial encounter (principal); Z20.822 Contact with and (suspected) exposure to COVID-19

== ENCOUNTER 2021-11-14 14:21 | Inpatient (IN) | payer MEDICARE, OTHER ==
[~2021-11-14] VITALS: Ht 182.9 cm; Wt 77.1 kg
[2021-11-14 14:52] VITALS: BP 116/85
[2021-11-14 15:56] LABS: HEMATOCRIT 45.9 % (42.0-52.0); HEMOGLOBIN 15.9 gm/dL (14.0-18.0); MCH 27.6 pg (26.0-34.0); MCHC 34.7 g/dL (28.0-37.0); MCV 79.5 fL (80.0-100.0); MPV 7.2 fl. (7.2-11.1); NUCLEATED RBCS 0 /100WBC; PLATELET COUNT* 344 thou/uL (150-400); RBC 5.78 mil/uL (4.50-6.00); RDW-CV 14.3 % (10.5-14.5); WBC 12.7 thou/uL (4.0-11.0)
[2021-11-14 16:02] LABS: CALCIUM 9.2 mg/dL (8.5-10.1); CREATININE 1.2 mg/dL (0.6-1.3); POTASSIUM 4.1 mmol/L (3.5-5.1)
--- NOTE | 2021-11-14 16:07 | EKG ---
[place] [address] ELECTROCARDIOGRAM REPORT Name: NATHANIEL BLANCHARD Room: [facility]#: [id number] Admission: 11/14/21 Attend Phys: Discharge: Date of : 55 Date of Service: 11/14/21 1546 Report #: [id number] THIS REPORT FOR: //name// [facility] ED Test Date: 2021-11-14 Test Time: 15:46:36 Pat Name: NATHANIEL BLANCHARD Department: Room: Gender: Certified Coder: : 1955 Requested By: Arnaldo Randolph Order Number: [id number] MD: Jonel June Measurements Intervals [place] Rate: 100 P: 52 MD: 147 QRS: -20 QRSD: 91 T: 41 QT: 343 QTc: 443 Interpretive Statements Sinus tachycardia Borderline left axis deviation Compared to ECG 07/08/2021 13:28:35 Sinus rhythm no longer present Electronically Signed On 11-14-2021 16:07:01 TIN POURER by Jonel June [email or web address] <ELECTRONICALLY SIGNED> By: Jonel June MD, [facility] 11/14/21 1607 1546 1546 Jonel June MD, [facility] /EPI
[2021-11-14 16:13] LABS: ALBUMIN 3.7 g/dL (3.4-5.0); TOTAL BILIRUBIN 1.1 mg/dL (<0.1-1.0); TOTAL PROTEIN 8.4 g/dL (6.4-8.2)
[2021-11-14 16:23] LABS: ABSOLUTE EOSINOPHILS 0.1 thou/uL (0.0-0.7); ABSOLUTE LYMPHOCYTES 1.5 thou/uL (0.8-5.3); ABSOLUTE MONOCYTES 0.3 thou/uL (0.0-1.2); ABSOLUTE NEUTROPHILS 10.8 thou/uL (1.6-8.1); ATYPICAL LYMPHS 1 %; PLATELET ESTIMATE ADEQUATE
[2021-11-14 20:51] LABS: URINE BILIRUBIN NEGATIVE (Negative); URINE BLOOD NEGATIVE (Negative); URINE CLARITY CLEAR; URINE COLOR YELLOW; URINE GLUCOSE-RANDOM NEGATIVE (Negative); URINE KETONES NEGATIVE (Negative); URINE LEUKOCYTES-REFLEX NEGATIVE (Negative); URINE NITRITE-REFLEX NEGATIVE (Negative); URINE PROTEIN NEGATIVE (Negative); URINE SPECIFIC GRAVITY <= 1.005 (1.005-1.030); URINE UROBILINOGEN 0.2 E.U./dl (0.2-1.0)
[2021-11-14 22:27] VITALS: BP 143/83
[2021-11-15 02:08] VITALS: BP 123/67
[2021-11-15 05:54] VITALS: BP 119/69
== END 2021-11-15 09:00 | disposition left against medical advice (07) | DRG 372 ==
LOC: M.ERS 14:21 → M.TBA-ER 18:48
PROVIDERS: Family Medicine; ADMIT Internal Medicine; ATTEND Internal Medicine
DX: A04.9 Bacterial intestinal infection, unspecified (principal); R65.10 Systemic inflammatory response syndrome (SIRS) of non-infectious origin without acute organ dysfunction; Z20.822 Contact with and (suspected) exposure to COVID-19; E78.00 Pure hypercholesterolemia, unspecified; E11.40 Type 2 diabetes mellitus with diabetic neuropathy, unspecified; G89.29 Other chronic pain; M54.9 Dorsalgia, unspecified; F17.210 Nicotine dependence, cigarettes, uncomplicated; K52.9 Noninfective gastroenteritis and colitis, unspecified; Z53.29 Procedure and treatment not carried out because of patient's decision for other reasons; I25.2 Old myocardial infarction; Z95.5 Presence of coronary angioplasty implant and graft; Z85.118 Personal history of other malignant neoplasm of bronchus and lung; Z91.19 Patient's noncompliance with other medical treatment and regimen

== ENCOUNTER 2022-01-04 00:25 | Emergency (ER) | payer MEDICARE, OTHER ==
[~2022-01-04] VITALS: Ht 180.3 cm; Wt 76.2 kg
[2022-01-04 01:16] LABS: ABSOLUTE EOSINOPHILS 0.1 thou/uL (0.0-0.7); ABSOLUTE LYMPHOCYTES 1.4 thou/uL (0.8-5.3); ABSOLUTE MONOCYTES 0.3 thou/uL (0.0-1.2); ABSOLUTE NEUTROPHILS 2.1 thou/uL (1.6-8.1); BASOPHILS 0.9 %; EOSINOPHILS 3.3 %; HEMATOCRIT 34.4 % (42.0-52.0); HEMOGLOBIN 11.7 gm/dL (14.0-18.0); LYMPHOCYTES 36.2 %; MCH 27.7 pg (26.0-34.0); MCHC 33.9 g/dL (28.0-37.0); MCV 81.5 fL (80.0-100.0); MONOCYTES 6.9 %; MPV 7.3 fl. (7.2-11.1); NUCLEATED RBCS 0 /100WBC; PLATELET COUNT* 141 thou/uL (150-400); POLYS 52.7 %; RBC 4.22 mil/uL (4.50-6.00); RDW-CV 15.3 % (10.5-14.5); WBC 3.9 thou/uL (4.0-11.0)
[2022-01-04 01:19] LABS: CALCIUM 8.1 mg/dL (8.5-10.1); CREATININE 0.9 mg/dL (0.6-1.3); POTASSIUM 3.8 mmol/L (3.5-5.1)
[2022-01-04 01:20] LABS: INR 1.2; PROTIME 12.4 Seconds (9.20-11.50)
[2022-01-04 01:30] LABS: ALBUMIN 3.2 g/dL (3.4-5.0); TOTAL BILIRUBIN 0.3 mg/dL (<0.1-1.0); TOTAL PROTEIN 6.8 g/dL (6.4-8.2)
[2022-01-04 04:05] VITALS: BP 107/67
--- NOTE | 2022-01-04 09:15 | EKG ---
[place] [address] ELECTROCARDIOGRAM REPORT Name: NATHANIEL BLANCHARD Room: [facility]#: [id number] Admission: 01/04/22 Attend Phys: Discharge: 01/04/22 Date of : 55 Date of Service: 01/04/2229 Report #: [id number] THIS REPORT FOR: //name// [facility] ED Test Date: 2022-01-04 Test Time: 00:30:13 Pat Name: NATHANIEL BLANCHARD Department: Room: Gender: Paste Maker: : 1955 Requested By: Odalys Munroe Order Number: [id number] MD: Jonel June Measurements Intervals [place] Rate: 85 P: 64 [place]: 162 QRS: 32 QRSD: 91 T: 50 QT: 368 QTc: 438 Interpretive Statements Sinus rhythm Compared to ECG 11/14/2021 15:46:36 Sinus tachycardia no longer present Electronically Signed On 01-04-2022 9:02:31 PRINTING MACHINE OPERATOR TAPE RULES by Jonel June [email or web address] <ELECTRONICALLY SIGNED> By: Jonel June MD, [facility] 01/04/22901 Jonel June MD, [facility] /EPI
== END 2022-01-04 04:05 | disposition home or self-care (01) ==
LOC: M.ERS 00:25
PROVIDERS: Personal Emergency Response Attendant
DX: R07.89 Other chest pain (principal); E11.40 Type 2 diabetes mellitus with diabetic neuropathy, unspecified; F17.210 Nicotine dependence, cigarettes, uncomplicated; Z95.5 Presence of coronary angioplasty implant and graft; Z79.4 Long term (current) use of insulin